=== PATIENT | male | born 1965 | race Caucasian/White ===

== ENCOUNTER 2017-01-31 16:01 | Outpatient (CLI) | payer BC ==
--- NOTE | 2017-02-03 18:04 | DIAGNOSTIC IMAGING REPORT ---
PROCEDURE: MR LOW EXT NONJOINT WO CON-LT INDICATION: Medial midfoot pain. TECHNIQUE: T1 and STIR sagittal, axial, coronal, and coronal oblique images of the foot. T1 and STIR axial-oblique images of the mid and distal foot. COMPARISON: None. 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 This is associated with thickening and tendinosis of the distal posterior tibial tendon. 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 There are mild degenerative changes of the left talonavicular joint and navicular/lateral cuneiform joint. The rest the osseous structures and joint spaces are normal. Lisfranc's ligament is normal. There is mild soft tissue swelling over the dorsum of the distal left foot. The flexor digitorum and flexor hallucis tendons are normal. Medial deltoid and spring ligaments appear normal. Lateral ankle ligaments and tendons (peroneus longus, peroneus brevis) appear normal. Plantar fascia and Achilles tendon appear normal. IMPRESSION: 1. There is prominence of the medial navicular with an unfused accessory ossicle (os tibiale externum). Findings are associated with moderate tendinosis of the posterior tibial tendon insertion. 2. 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 3. Mild arthritic changes of the left midfoot. 4. Mild soft tissue swelling over the dorsum of the left midfoot.
== END 2017-01-31 23:00 ==
LOC: MRI SRH 16:01
DX: M76.822 Posterior tibial tendinitis, left leg (principal); M65.872 Other synovitis and tenosynovitis, left ankle and foot; M19.079 Primary osteoarthritis, unspecified ankle and foot; M79.9 Soft tissue disorder, unspecified